=== PATIENT | male | born 1990 | race Caucasian/White ===

== ENCOUNTER 2017-12-25 14:34 | Emergency (ER) | payer OTHER ==
[~2017-12-25] VITALS: Ht 188 cm; Wt 93.0 kg
[2017-12-25 14:38] VITALS: BP 114/72
--- NOTE | 2017-12-25 15:09 | ED ANKLE/FOOT INJURY COMPLAINT ---
History of Present Illness General Chief Complaint: Foot or Ankle Injury Stated Complaint: LT ANKLE PAIN Source: patient, old records Exam Limitations: no limitations Vital Signs & Intake/Output Vital Signs & Intake/Output Vital Signs Date Time Temp Pulse Resp B/P B/P Pulse O2 O2 Flow FiO2 Mean Ox Delivery Rate 12/25 1523 Room Air 12/25 1438 98.1 76 18 114/72 98 Room Air Allergies Coded Allergies: codeine (UNKNOWN 12/25/17) Reconcile Medications No Known Home Medications Triage Note: 27 YO MALE TO TRIAGE C/O L ANKLE PAIN AFTER STEPPING THE WRONG WAY. 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 yes Occurred: just prior to arrival Duration: hour(s): (1), constant Timing: recent history Severity: moderate Severity Numbers: 6 Pain/Injury Location: Left: Ankle. Method of Injury: twisted Modifying Factors: Worsens With: movement. Associated Symptoms: swelling HPI: 27-year-old male with no known medical history presents to ER for evaluation playing of left lateral ankle pain. Patient states he was stepping out of his car and inverted his foot. He states he heard a crack is been unable to bear weight since the injury. He denies any hip back knee or other leg pain. He denies any other injury no right leg injury he took Advil prior to arrival no numbness (Bandar Gonzales) Past History Travel History Traveled to [place] past 21 day No Medical History Any Pertinent Medical History? none Neurological: NONE EENT: NONE Cardiovascular: NONE Respiratory: NONE Gastrointestinal: NONE Hepatic: NONE Renal: NONE Musculoskeletal: NONE Psychiatric: NONE Endocrine: NONE Blood Disorders: NONE Cancer(s): NONE PACKAGING INSPECTOR/Reproductive: NONE Surgical History Surgical History: non-contributory Psychosocial History What is your primary language Ukrainian Tobacco Use: Never used Family History Hx Contributory? No (Bandar Gonzales) Review of Systems Review of Systems Constitutional: Reports: see HPI. Comments Review of systems: See HPI, All other systems negative. Constitutional, no chills no fever HEENT: no sore throat no congestion Cardiovascular: No chest pain Skin: no rashes, no change in skin Respiratory: No dyspnea no cough GI: No nausea no vomiting, Muscle skeletal: See HPI Neurologic: , no headache Heme/endocrine: No bruising (Bandar Gonzales) Physical Exam Physical Exam General Appearance: well developed/nourished, no apparent distress, alert, awake , comfortable Leg/Knee/Thigh Left: normal range of motion Comments: Well-developed well-nourished patient in no apparent distress. HEENT: Atraumatic, extraocular motion intact Neck: Supple, FROM Back: FROM Cardiovascular: Regular rate and rhythms no murmurs rubs or gallops, Respiratory: Chest nontender.There were no bony deformities, no asymmetry. No respiratory distress. Patient speaking in full complete sentences. Breath sounds clear to auscultation bilaterally: NO W/R/R Upper Extremities: full range of motion Hip/Pelvis: Atraumatic/Stable. FROM. Knee: Atraumatic/stable. FROM. No joint swelling, no effusion. No laxity. Leg: Atraumatic. Nontender. No edema, 5 out of 5 strength in the lower extremity, normal dorsiflexion of great toe bilaterally, gross sensation is intact, Ankle/Foot: Ankle with moderate tenderness and swelling laterally over the lateral ligaments. No bony tenderness. No medial tenderness. Range of motion is near full but somewhat limited due to pain. No instability is noted. Skin is intact, No MEdial swelling, No ecchymosis noted. The foot is neurovascularly intact with sensation and motor grossly intact. There is no foot tenderness or fifth metatarsal tenderness. Able to move all toes. Palpable and intact achilles tendon. There is no proximal tib/fib tenderness Pulses: Normal/equal DP/PT pulses bilaterally. Brisk cap refill Neuro: awake, alert, and oriented to person, place and time. There were no obvious focal neurologic abnormalities. Skin: Warm & dry;No appreciable rash on exposed skin Psych: Mood affect normal, normal memory normal judgment. (Tabitha RICHARDSON,Bandar) Progress Differential Diagnosis: fracture, dislocation, sprain, contusion Plan of Care: Orders Procedure Date/time Status Durable Medical Equipment 12/25 1605 Active X-rays ordered from triage patient is declining anything for pain when offered I discussed with the patient at length all of their results. I had an extensive conversation regarding need for close follow up with their primary care physician and orthopedist /this week as well as return precautions. Pneumatic boot crutches provided I answered all of their questions, they feel comfortable with the plan and follow-up care. Diagnostic Imaging: Viewed by Me: Radiology Read. Discussed w/RAD: Radiology Read. Radiology Impression: PATIENT: NAHEED PECK PRESENT AGE: 27 PATIENT ACCOUNT NO: [id number] : 88 LOCATION: [facility] ORDERING PHYSICIAN: Jeffry RICHARDSON SERVICE DATE: 12/25/17 EXAM TYPE: RAD - XRY-ANKLE 3 OR MORE VIEWS L EXAMINATION: XR ANKLE, LEFT CLINICAL INFORMATION: Fall. Pain. COMPARISON: None TECHNIQUE: 3 views of the left ankle. FINDINGS: There is no evidence of fracture or dislocation. The ankle mortise is congruent. The talar dome is intact. No effusion is visualized. The visualized hindfoot is unremarkable. There is mild soft tissue swelling along the lateral malleolus. IMPRESSION: No fracture or dislocation. Soft tissue swelling along the lateral ankle. DICTATED BY: Garfield Atkins MD DATE/TIME DICTATED:12/25/171549 CO OP:DEVENDRA DATE/TIME TRANSCRIBED:12/25/171549 CONFIDENTIAL, DO NOT COPY WITHOUT APPROPRIATE AUTHORIZATION. <Electronically signed in Other Vendor System> SIGNED BY: Garfield Atkins MD 12/25/171554 (Bandar Gonzales) Departure Departure Disposition: HOME OR SELF CARE Condition: Stable Clinical Impression Primary Impression: Ankle sprain Referrals: Patient Has No Primary Care Dr (PCP/Family) Nika RANGEL,Maximino Kong Additional Instructions: Rest ice and Tylenol Motrin for pain keep leg elevated pneumatic boot crutches when ambulatory. Follow up with her primary care physician and orthopedist Dr. LOPEZ if symptoms persist Departure Forms: Customer Survey General Discharge Information Industrial Accident Report Prescriptions: Current Visit Scripts No Known Home Medications (Bandar Gonzales) PA/LASER MACHINE OPERATOR Co-Sign Statement Statement: ED Attending supervision documentation- x I saw and evaluated the patient. I have also reviewed all the pertinent lab results and diagnostic results. I agree with the findings and the plan of care as documented in the PA's/LASER MACHINE OPERATOR's documentation. [] I have reviewed the ED Record and agree with the PA's/LASER MACHINE OPERATOR's documentation. [] Additions or exceptions (if any) to the PAs/LASER MACHINE OPERATOR's note and plan are summarized below: [] (Fransisco RANGEL,Padilla)
--- NOTE | 2017-12-25 15:55 | RADIOLOGY REPORT ---
EXAMINATION: XR ANKLE, LEFT CLINICAL INFORMATION: Fall. Pain. COMPARISON: None TECHNIQUE: 3 views of the left ankle. FINDINGS: There is no evidence of fracture or dislocation. The ankle mortise is congruent. The talar dome is intact. No effusion is visualized. The visualized hindfoot is unremarkable. There is mild soft tissue swelling along the lateral malleolus. IMPRESSION: No fracture or dislocation. Soft tissue swelling along the lateral ankle.
== END 2017-12-25 16:40 ==
LOC: ERH 14:34
DX: S93.402A Sprain of unspecified ligament of left ankle, initial encounter (principal); X58.XXXA Exposure to other specified factors, initial encounter; Y92.9 Unspecified place or not applicable; Y93.9 Activity, unspecified
CPT/HCPCS: 73610-LT